=== PATIENT | female | born 1960 | race Caucasian/White ===

== ENCOUNTER 2024-01-31 06:17 | Emergency (ER) | payer SELFPAY ==
[2024-01-31 06:23] VITALS: BP 131/78
[2024-01-31 06:48] VITALS: BMI 39.9
[2024-01-31 07:14] VITALS: BP 134/66
[2024-01-31 07:16] LABS: % Basophils 0.3 % (0-2); % Eosinophils 1.8 % (0-6); % Immature Granulocytes 0.5 % (0-0.5); % Lymphocytes 16.5 % (20.5-51.1); % Monocytes 6.8 % (1.7-9.3); % Neutrophils 74.1 % (42.2-75.2); Absolute Eosinophils 0.1 10^3/uL (0-0.7); Absolute Lymphocytes 1.3 10^3/uL (1.2-3.4); Absolute Monocytes 0.5 10^3/uL (0.1-0.6); Absolute Neutrophils 5.9 10^3/uL (1.4-6.5); Hematocrit 31.6 % (37.0-47.0); Hemoglobin 10.6 g/dL (12.0-16.0); Mean Corp Hgb Conc. 33.5 g/dL (33.0-37.0); Mean Corpuscular Hgb 34.1 pg (27.0-31.0); Mean Corpuscular Volume 101.6 fL (81.0-99.0); Mean Platelet Volume 9.3 fL (7.4-10.4); Nucleated Red Blood Cells % 0 %; Platelet Count 148 10^3/uL (130-400); Red Blood Cell Count 3.11 10^6/uL (4.20-5.40); Red Cell Dist. Width 12.8 % (11.5-14.5); White Blood Cell Count 7.9 10^3/uL (4.8-10.8)
--- NOTE | 2024-01-31 07:21 | ED.GENMED ---
History of Present Illness
General
Chief Complaint: Fall
Source: patient and ambulance crew
Exam Limitations: none
Time Seen by Provider: 01/31/24 06:20
History of Present Illness
History of Present Illness:
63-year-old female presents for evaluation of her wound on her left knee. The patient had a left total knee replacement 2 days ago. She states that she has had consistent bleeding. She did have 2 falls recently. EMS reports there was a lot of
blood at the house. Patient states that she feels somewhat unsafe at home because her apartment is small and not ideal for her. She wanted to go to rehab but was told that her insurance did not cover it. The patient states that she fell yesterday
and again today. EMS initially got called for lift assist. Patient does not think she hit her knee but is unsure
Past History
Past History
ED Past Medical History: Hypercholesterolemia, NIDDM, Psychiatric (anxiety) and Other (Arthritis, ovarian cysts, Polysubstance intoxication)
ED Past Surgical History: Cholecystectomy
Social History
Tobacco: Former smoker
Alcohol: Daily (1-2)
Drug: None and Other (Xanax)
Personal: Single
Living: with family
Employment: Not employed
Family History
Family History: Other
Phy Exam
Physical Exam
Physical Exam:
CONSTITUTIONAL Vital signs reviewed, Patient alert and oriented to person, place and time. Well-appearing
HEAD atraumatic, normocephalic.
EYES eyelids normal to inspection, Extraocular muscles intact, Conjunctiva normal, Sclera normal.
NECK normal range of motion, Trachea midline, no jugular venous distention.
RESP no respiratory distress
BACK No obvious deformities
UPPER EXTREMITY Gross Range of motion normal, gross motor strength normal
LOWER EXTREMITY diffuse swelling about her left knee without any redness. There is ecchymosis bilaterally. She does have saturated blood on her dressings. Dressing was removed. There is no surrounding redness around her wound. The wound is
intact. She does have normal distal perfusion
NEURO Speech normal, No focal motor deficits include, Crescent coma scale 15, Memory normal, Cranial Nerves intact to screening exam.
SKIN Skin warm, dry, and normal in color.
PSYCHIATRIC Patient oriented to person place and time, Normal affect.
Course
Orders/Labs/Results
Orders:
Orders
01/31/24 06:47
Knee, Left 4 or More Views [CR Knee - Left 4 Or More View*] Urgent
Comment:
Reason For Exam: swelling, recent replacement
01/31/24 07:01
Basic Metabolic Panel Urgent
Complete Blood Count/With Diff Urgent
Prothrombin Time Urgent
01/31/24 07:46
Case Management Consult ONCE
Case Management Consult: Discharge Planning
Abnormal Lab Results
01/31/24
07:01
RBC 3.11 L 10^6/uL
(4.20-5.40)
Hgb 10.6 L g/dL
(12.0-16.0)
Hct 31.6 L %
(37.0-47.0)
MCV 101.6 H fL
(81.0-99.0)
MCH 34.1 H pg
(27.0-31.0)
Lymphocytes % 16.5 L %
(20.5-51.1)
Sodium 131 L mmol/L
(135-145)
Carbon Dioxide 21 L mmol/L
(22-30)
BUN 37 H mg/dl
(7-17)
Creatinine 1.5 H mg/dL
(0.6-1.0)
Glucose 154 H mg/dl
(70-99)
Calcium 8.2 L mg/dl
(8.4-10.2)
01/31/24 07:01
01/31/24 07:01
Vital Signs
Initial and Last Documented VS:
Initial Vital Signs
Temp Pulse Resp BP Pulse Ox
99.2 F 97 18 131/78 97
01/31/24 06:23 01/31/24 06:23 01/31/24 06:23 01/31/24 06:23 01/31/24 06:23
Last Documented Vital Signs
Temp Pulse Resp BP Pulse Ox
99.2 F 89 16 134/86 95
01/31/24 06:23 01/31/24 07:23 01/31/24 07:23 01/31/24 07:23 01/31/24 07:16
MDM/Problems Addressed
MDM/Problems Addressed:
Postoperative wound bleeding, postoperative knee effusion
*Radiology
Radiology exam reviewed: preliminary read by ED provider (No fracture, small effusion)
*Pulse Oximetry
Patient hypoxic: no
*Critical Care Note
Total Time (30-74mins, 75-104mins- exclusive of procedures): Not Applicable
Data Reviewed
Source: patient and ambulance crew
Prescriptions/Medications Considered But Not Given:
Consider antibiotics but no overt signs of infection
Patient Management
Escalation/DeEscalation of care consider admission/obs:
Patient peers quite well. The wound has been observed there is no active bleeding. Will reapply wound dressing and refer to orthopedics for follow-up. Case management consult to ensure home care is appropriate
ED Attending Note
-
Portions of this chart may have been created with voice recognition software.� Occasional wrong word or��sound alike� substitutions may have occurred due to the inherent limitations of voice recognition software.
Discharge Plan
Departure
Patient Disposition: Home (Routine Discharge)
Date of Disposition: 01/31/24
Time of Disposition: 08:19
Patient with high blood pressure during this ER visit?: No
Discharge Problem:
Post-operative hemorrhage, Postoperative knee effusion
Prescriptions:
No Action
zolpidem 10 MG tablet
10 mg PO HSPRN PRN (Reason: insomnia)
alprazolam 0.5 MG tablet
0.5 mg PO BIDPRN PRN (Reason: anxiety)
levothyroxine 50 MCG tablet
50 mcg PO DAILY
allopurinol 300 MG tablet
300 mg PO DAILY
latanoprost 1 DROP drops
1 drp BOTH EYES HS
atorvastatin 20 MG tablet
40 mg PO DAILY
hydrocodone-acetaminophen 1 EACH tablet
1 ea PO DAILYPRN PRN (Reason: moderate pain)
lisinopril 10 MG tablet
10 mg PO DAILY
gabapentin 300 MG capsule
300 mg PO HS
gabapentin 100 MG capsule
100 mg PO DAILYPRN PRN (Reason: nerve pain/convulsions)
metoprolol tartrate 25 MG tablet
25 mg PO BIDPRN PRN (Reason: pt thought it was for anxiety)
duloxetine 60 MG capsule,delayed release(DR/EC)
60 mg PO DAILY
magnesium hydroxide 30 ML suspension
30 ml PO HSPRN PRN (Reason: constipation) Qty: 10 0RF
lidocaine HCl-hydrocortison ac 7 GM cream
1 applic OH PRN PRN (Reason: rectal pain) Qty: 60 0RF
Referrals:
UNKNOWN - PT DOES,NOT KNOW [Family Provider] -
Activity Restrictions/Additional Instructions:
Postoperative wound bleeding
Postoperative knee effusion
Please see your creative services specialist in the next 3 to 5 days for follow-up and reevaluation. Return immediately for fevers, redness, worsening pain, increased bleeding or any other concerns.
Interventions
Interventions:
*General Assessment Last Done: 01/31/24 06:23
*Neglect/Abuse Screening Last Done: 01/31/24 06:23
ED- Fall Risk Assessment Last Done: 01/31/24 06:23
*ED COVID-19 Vaccine History Last Done: 01/31/24 06:23
ED-Musculoskeletal Assessment Last Done: 01/31/24 07:21
ED- Neurological Assessment Last Done: 01/31/24 07:21
ED-Skin Assessment Last Done: 01/31/24 07:22
Discharge Date and Time
Print Language: INDONESIAN
[2024-01-31 07:23] VITALS: BP 134/86
[2024-01-31 07:32] LABS: Blood Urea Nitrogen 37 mg/dl (7-17); Calcium 8.2 mg/dl (8.4-10.2); Carbon Dioxide 21 mmol/L (22-30); Chloride 102 mmol/L (98-107); Estimated Creatinine Clearance 49 ml/min; Glucose 154 mg/dl (70-99); Potassium 4.4 mmol/L (3.5-5.1); Sodium 131 mmol/L (135-145); eGFR 39.16
[2024-01-31] MEDS: PERCOCET 5/325 1 TABLET PO (08:54)
--- NOTE | 2024-01-31 09:41 | CM ---
Addendum entered by Ximena Thomas 01/31/24 10:10:
Patient verbalized understanding and agreeable to plan.
Original Note:
Chart reviewed. CM consult for discharge planning. Dr. Morin explained further that he would like [facility] sent up for patient. Patient was at bedside. CM introduced self and role. Patient shared that she did not have HHC set up when she was d/c'd after
her knee replacement. She was agreeable to C.
Patient confirmed that her address is: [address] [place] [address] in [place]. She lives in a [facility] building 'on [place]' [place] [facility]. Her PCP is Kathy Mora MD at [facility].
Willl consult and shared above information via [employer].
[2024-01-31 09:54] VITALS: BP 145/78
== END 2024-01-31 09:55 | disposition home or self-care (01) ==
LOC: EMR 06:17
PROVIDERS: EMERGENCY PHYSICIAN Emergency Medicine
DX: L76.22 Postprocedural hemorrhage of skin and subcutaneous tissue following other procedure (principal); M25.462 Effusion, left knee; E11.9 Type 2 diabetes mellitus without complications; E78.00 Pure hypercholesterolemia, unspecified; F41.9 Anxiety disorder, unspecified; M19.90 Unspecified osteoarthritis, unspecified site; Z87.891 Personal history of nicotine dependence; Z90.49 Acquired absence of other specified parts of digestive tract; Z96.652 Presence of left artificial knee joint
CPT/HCPCS: 99283; 73564; 80048; 85025; 85610